=== PATIENT | male | born 1985 | race Hispanic/Latino ===

== ENCOUNTER 2018-03-20 13:03 | Outpatient (CLI) | payer OTHER ==
--- NOTE | 2018-03-20 15:46 | RAD ---
2 VIEWS THORACIC SPINE: Date: 03/20/18 HISTORY: Patient fell in January. Surgery on low back. FINDINGS: Postsurgical changes related to posterior fusion of the T12 vertebral body and visualized upper lumb ar spine. Vertebral body heights and intervertebral disc spaces of the lumbar spine are within normal limits without fracture or subluxation involving the thoracic spine. IMPRESSION: 1. Postsurgical changes involving the T12 vertebral body and visualized upper thoracic spine. 2. No acute findings involving the thoracic spine. POS: [facility]
--- NOTE | 2018-03-20 15:48 | RAD ---
TWO VIEWS LUMBAR SPINE: History: Fall with previous history of fracture. FINDINGS: AP and lateral views of the lumbar spine demonstrate fusion of the T12, L1, L2, L3 and L4 levels with pedicle screws. The patient has had a previous fracture at the L2 level. IMPRESSION: T12 through L4 fracture. L2 fracture demonstrates some slight height loss. Areas of lucency remain th rough the vertebrae, compatible with incomplete healing. POS: [facility]
== END 2018-03-20 13:04 | disposition home or self-care (01) ==
LOC: TBSIIMAG 13:03
PROVIDERS: ATTEND Surgery
DX: S22.089D Unspecified fracture of T11-T12 vertebra, subsequent encounter for fracture with routine healing (principal); M54.5 Low back pain; Z98.1 Arthrodesis status
CPT/HCPCS: 72072; 72100

== ENCOUNTER 2018-05-03 09:21 | Outpatient (CLI) | payer OTHER ==
--- NOTE | 2018-05-03 10:56 | RAD ---
LUMBAR SPINE TWO VIEWS: History: 33-year-old male with history of S24.101A, unspecified injury at the T1 level of the thoracic spine. Comparison: 03-20-18 FINDINGS: Pedicle screws and rods stabilize T12 through L4 with a comminuted L2 fracture stable in position and alignment from the prior study. Laminectomy changes at this level. IMPRESSION: Post op fixation of the thoracolumbar vertebral column with laminectomy changes at L2 with mild commi nuted compression fracture changes. Stable from prior study. POS: [facility]
--- NOTE | 2018-05-03 11:09 | RAD ---
THORACIC SPINE THREE VIEWS: History: Follow up back injury. Comparison: 03-20-18 FINDINGS: Pedicle screws and rods are again seen at T12, L1, and L2. Evidence of prior fractures at L2 which ar e incompletely imaged on this exam. Otherwise, the thoracic vertebrae maintain height and alignment. The thoracic disc spaces are preserv ed. No interval change noted. IMPRESSION: Post-operative change in lower thoracic and upper lumbar spine appears stable. No acute interval raymond ge noted. POS: [facility]
== END 2018-05-03 09:22 | disposition home or self-care (01) ==
LOC: TBSIIMAG 09:21
PROVIDERS: ATTEND Surgery
DX: S24.101A Unspecified injury at T1 level of thoracic spinal cord, initial encounter (principal); Z98.890 Other specified postprocedural states
CPT/HCPCS: 72070; 72100